=== PATIENT | female | born 1965 | race Caucasian/White ===

== ENCOUNTER 2022-10-04 20:20 | Emergency (ER) | payer OTHER ==
[2022-10-04 20:43] VITALS: BP 108/72; PULSE 90; RESP 18; TEMP 97.9; BMI 21.3
[2022-10-04] MEDS ORDERED: CYCLOBENZAPRINE HCL 10 MG TABLET (FP) ONE (22:57)
== END 2022-10-04 23:04 | disposition home or self-care (01) ==
LOC: JERFT 20:20
DX: M54.41 Lumbago with sciatica, right side (principal)
CPT/HCPCS: 72100-TC-FY; 99283-25

== ENCOUNTER 2023-12-16 13:05 | Emergency (ER) | payer OTHER ==
[2023-12-16 13:13] VITALS: BP 135/72; PULSE 69; RESP 18; TEMP 97.9; BMI 29.8
[2023-12-16] MEDS ORDERED: KETOROLAC TROMETHAMINE 30 MG/1 ML VIAL IVPUSH ONE (13:31)
[2023-12-16] MEDS ORDERED: KETOROLAC TROMETHAMINE 30 MG/1 ML VIAL ONE (14:13)
[2023-12-16 14:39] LABS: EOS % 1.6 % (0-4.5); HEMATOCRIT 38.6 % (32.4-45.2); HEMOGLOBIN 12.4 GM/dL (10.7-15.3); LYMPH % 26.8 % (8-40); MCH 31.4 pg (25.7-33.7); MCHC 32.3 g/dl (32.0-36.0); MEAN CELL VOLUME 97.3 fl (80-96); MEAN PLT VOLUME 9.4 fl (7.5-11.1); MONO % 8.1 % (3.8-10.2); NEUT % 62.5 % (42.8-82.8); PLATELET COUNT 213 10^3/uL (134-434); RBC 3.97 M/mm3 (3.60-5.2); RDW 13.2 % (11.6-15.6); WHITE BLOOD COUNT 5.9 K/mm3 (4.0-10.0)
[2023-12-16 15:13] LABS: POTASSIUM 4.3 mmol/L (3.5-5.1)
[2023-12-16 15:16] LABS: CALCIUM 9.7 mg/dL (8.5-10.1)
[2023-12-16 15:17] LABS: ALBUMIN 3.9 g/dl (3.4-5.0); BLOOD UREA NITROGEN 19.4 mg/dL (7-18)
[2023-12-16 15:20] LABS: CREATININE 0.6 mg/dL (0.55-1.3)
[2023-12-16 15:22] LABS: BILIRUBIN,TOTAL 0.3 mg/dL (0.2-1); TOT PROT 7.3 g/dl (6.4-8.2)
== END 2023-12-16 16:16 | disposition home or self-care (01) ==
LOC: JERFT 13:05
PROC: 3E033NZ Introduction of Analgesics, Hypnotics, Sedatives into Peripheral Vein, Percutaneous Approach (ICD-10-PCS; principal; 2023-12-16)
DX: R10.11 Right upper quadrant pain (principal); K76.0 Fatty (change of) liver, not elsewhere classified
CPT/HCPCS: 36415; 76705-TC; 80053; 85025; 99284-25

== ENCOUNTER 2024-08-27 14:48 | Emergency (ER) | payer OTHER ==
[2024-08-27 15:01] VITALS: BP 117/85; PULSE 87; RESP 16; TEMP 99.3; BMI 29.6
[2024-08-27 16:07] LABS: BASO % 0.4 % (0-2.0); EOS % 0.1 % (0-4.5); HEMATOCRIT 39.8 % (32.4-45.2); HEMOGLOBIN 13.3 GM/dL (10.7-15.3); MCH 31.8 pg (25.7-33.7); MCHC 33.5 g/dl (32.0-36.0); MEAN CELL VOLUME 94.8 fl (80-96); MEAN PLT VOLUME 9.9 fl (7.5-11.1); MONO % 9.4 % (3.8-10.2); NEUT % 74.1 % (42.8-82.8); PLATELET COUNT 185 10^3/uL (134-434); RDW 13.4 % (11.6-15.6); WHITE BLOOD COUNT 5.8 K/mm3 (4.0-10.0)
[2024-08-27 16:14] LABS: INR 0.96 (0.83-1.09); PROTHROMBIN TIME (PATIENT) 10.9 SEC (9.7-13.0)
[2024-08-27 16:16] LABS: ACTIVATED PTT 21.5 SECONDS (25.2-36.5)
[2024-08-27] MEDS ORDERED: FAMOTIDINE 20 MG/50 ML IVPB 20 MG/50 ML MG IVPB ONE (16:20)
[2024-08-27] MEDS ORDERED: ACETAMINOPHEN INJECTION 100 ML ONE (16:20)
[2024-08-27 16:26] LABS: POTASSIUM 5.2 mmol/L (3.5-5.1)
[2024-08-27 16:27] LABS: CALCIUM 9.4 mg/dL (8.5-10.1)
[2024-08-27 16:28] LABS: ALBUMIN 4.2 g/dl (3.4-5.0); BLOOD UREA NITROGEN 15.8 mg/dL (7-18)
[2024-08-27 16:33] LABS: BILIRUBIN,TOTAL 0.6 mg/dL (0.2-1)
[2024-08-27] MEDS: ACETAMINOPHEN 1000 MG/100 ML BAG IVPB ONE (17:20)
[2024-08-27] MEDS: FAMOTIDINE 20 MG/50 ML IVPB 20 MG/50 ML MG IVPB ONE (17:29)
[2024-08-27] MEDS ORDERED: AZITHROMYCIN 500 MG TABLET ONE (18:29)
[2024-08-27] MEDS: AZITHROMYCIN 250 MG TABLET PO ONE (18:30)
== END 2024-08-27 18:50 | disposition home or self-care (01) ==
LOC: JER 14:48
PROC: 3E033GC Introduction of Other Therapeutic Substance into Peripheral Vein, Percutaneous Approach (ICD-10-PCS; principal; 2024-08-27)
PROC: 3E033NZ Introduction of Analgesics, Hypnotics, Sedatives into Peripheral Vein, Percutaneous Approach (ICD-10-PCS; 2024-08-27)
DX: R19.7 Diarrhea, unspecified (principal); R11.0 Nausea; R10.13 Epigastric pain; Z20.822 Contact with and (suspected) exposure to COVID-19
CPT/HCPCS: 0241U-QW; 36415; 74177-TC; 80053; 83605; 83690; 84484; 85025; 85610; 85730; 93005; 93010; 99285-25; J0131